=== PATIENT | male | born 1975 | race Caucasian/White ===

== ENCOUNTER 2016-08-19 08:48 | Observation (INO) | payer BC ==
[2016-08-19] MEDS ORDERED: PANTOPRAZOLE SODIUM 40 MG VIAL IV ONE (10:26)
[2016-08-19] MEDS ORDERED: NORMAL SALINE 1000 ML 1,000 ML IV PRN ×2 (10:26→14:08)
--- NOTE | 2016-08-19 10:29 | ER Document Report ---
ED General - General Chief Complaint: Abdominal Pain Stated Complaint: ABDOMINAL PAIN Time seen by provider: 10:27 Mode of Arrival: Ambulatory Information source: Patient Notes: This is a 41-year-old male that presents to the emergency room with epigastric pain on and off for the past month, which has become progressively worse over the past several days. Patient does state that he had black stools yesterday. He was in the shower this morning and started vomiting gross blood. Patient last ate yesterday. Currently, he complains of the abdominal pain. He denies fever, chills. TRAVEL OUTSIDE OF THE [place] IN LAST 30 DAYS: No - HPI Onset: Just prior to arrival Onset/Duration: Gradual Quality of pain: No pain Associated symptoms: None. denies: Chills, Fever Exacerbated by: Denies Relieved by: Denies Similar symptoms previously: No Recently seen / treated by doctor: No - Related Data Allergies/Adverse Reactions: No Known Allergies Allergy (Unverified 08/19/16 08:59) Home Medications: Current Home Medications No Home Medications 08/19/16 [History] Past Medical History - General Information source: Patient - Social History Smoking Status: Current Every Day Smoker Cigarette use (# per day): Yes - half pack per day Chew tobacco use (# tins/day): No Frequency of alcohol use: Occasional Drug Abuse: None Lives with: Family Family History: Reviewed & Not Pertinent Patient has suicidal ideation: No Patient has homicidal ideation: No - Medical History Medical History: Negative Renal/ Medical History: Denies: Hx Peritoneal Dialysis Surgical Hx: Negative - Immunizations Hx Diphtheria, Pertussis, Tetanus Vaccination: Yes Review of Systems - Review of Systems Notes: Review of systems: Constitutional: Denies fever, chills. EENT: Denies ear pain, sinus tenderness, throat pain, throat swelling. Cardiovascular: Denies chest pain, palpitations, dyspnea or edema. Respiratory: Denies wheezing, cough, hemoptysis. Abdomen: See H&P Genitourinary: Denies dysuria, pyuria, hematuria, flank pain. Musculoskeletal: denies joint pain or swelling, denies back pain. Neurologic: Denies headache, photophobia, neck stiffness, weakness. Denies loss of bowel or bladder function. Denies saddle anesthesia. Skin: Denies rash, lesions. Physical Exam - Vital signs Vitals: Temp Pulse Resp BP Pulse Ox 98.2 F 94 14 143/112 H 99 08/19/16 08:55 08/19/16 08:55 08/19/16 08:55 08/19/16 08:55 08/19/16 08:55 Notes: Physical exam: GENERAL: 41-year-old man, alert and oriented 3, mild distress. HEAD: Atraumatic, normocephalic. EYES: Pupils equal round and reactive to light, extraocular movements intact, sclera anicteric, conjunctiva are normal. ENT: TMs normal, nares patent, oropharynx clear without exudates. Moist mucous membranes. NECK: Normal range of motion, supple without lymphadenopathy or JVD. LUNGS: Breath sounds clear to auscultation bilaterally and equal. No wheezes rales or rhonchi. HEART: Regular rate and rhythm without murmurs, rubs or gallops. ABDOMEN: Soft, hypoactive bowel sounds, positive epigastric tenderness, no rebound. Mild guarding. No masses appreciated. Rectal: Brown stool, sent for study EXTREMITIES: Normal range of motion, no pitting or edema. No clubbing or cyanosis. NEUROLOGICAL: Cranial nerves II through XII grossly intact. Normal speech, normal gait. PSYCH: Normal mood, normal affect. SKIN: Warm, Dry, normal turgor, no rashes or lesions noted. Course - Re-evaluation Re-evalutation: 08/19/16 14:[address] Cobb who will see patient in consult for GI - Vital Signs Vital signs: Temp Pulse Resp BP Pulse Ox 97.9 F 68 16 139/103 H 100 08/19/16 16:21 08/19/16 16:21 08/19/16 16:21 08/19/16 16:21 08/19/16 16:21 - Laboratory Result Diagrams: 08/19/16 10:30 08/19/16 10:30 Laboratory results interpreted by me: 08/19/16 08/19/16 10:30 10:30 WBC 13.4 H Lymphocytes % 12.0 L Eosinophils % 8.3 H Absolute Neutrophils 9.6 H Absolute Eosinophils 1.1 H Chloride 108 H Calcium 10.3 H AST 16 L Discharge - Discharge Clinical Impression: GI bleed Condition: Stable Disposition: ADMITTED INPATIENT Admitting Provider: Hospitalist - Dr. erwin Unit Admitted: Telemetry
[2016-08-19 10:45] LABS: ABSOLUTE BASOPHILS # (AUTO) 0.1 10^3/uL (0.0-0.2); ABSOLUTE EOSINOPHILS # (AUTO) 1.1 10^3/uL (0.0-0.6); ABSOLUTE LYMPHOCYTES (AUTO) 1.6 10^3/uL (0.5-4.7); ABSOLUTE MONOCYTES (AUTO) 0.9 10^3/uL (0.1-1.4); ABSOLUTE NEUT (AUTO) 9.6 10^3/uL (1.7-8.2); BASOPHILS % (AUTO) 0.8 % (0-2); EOSINOPHILS % (AUTO) 8.3 % (0-6); HEMOGLOBIN 14.7 g/dL (13.5-17.0); HGB HCT DIFFERENCE 0.1; MEAN CORPUSCULAR HEMOGLOBIN 30.2 pg (27.0-33.4); MEAN CORPUSCULAR HGB CONC 33.4 g/dL (32.0-36.0); MEAN CORPUSCULAR VOLUME 90 fl (80-97); MONOCYTES % (AUTO) 6.7 % (3-13); RED BLOOD COUNT 4.87 10^6/uL (4.35-5.55); RED CELL DISTRIBUTION WIDTH 13.9 % (11.5-14.0); SEGMENTED NEUTROPHILS % (AUTO) 72.2 % (42-78); WHITE BLOOD COUNT 13.4 10^3/uL (4.0-10.5)
[2016-08-19 10:52] LABS: PROTHROMBIN TIME 11.7 SEC (11.4-15.4)
[2016-08-19 11:02] LABS: BLOOD UREA NITROGEN 11 mg/dL (7-20); CALCIUM 10.3 mg/dL (8.4-10.2); CARBON DIOXIDE 23 mmol/L (22-30); CHLORIDE 108 mmol/L (98-107); CREATININE RESULT 0.78 mg/dL (0.52-1.25); GLUCOSE 93 mg/dL (75-110); POTASSIUM 4.8 mmol/L (3.6-5.0)
[2016-08-19 11:03] LABS: ALANINE AMINOTRANSFERASE 28 U/L (21-72); ALBUMIN 4.3 g/dL (3.5-5.0); ALKALINE PHOSPHATASE 48 U/L (38-126); ANION GAP 12 (5-19); ASPARTATE AMINO TRANSFERASE 16 U/L (17-59); BILIRUBIN,DIRECT 0.1 mg/dL (0.0-0.4); BILIRUBIN,TOTAL 0.5 mg/dL (0.2-1.3); LIPASE 78.5 U/L (23-300); TOTAL PROTEIN 6.8 g/dL (6.3-8.2)
[2016-08-19] MEDS ORDERED: ACETAMINOPHEN 325 MG TABLET PO PRN (14:08)
[2016-08-19] MEDS ORDERED: ONDANSETRON HCL INJ/PF 4 MG/2 ML SDV IV PRN (14:08)
[2016-08-19] MEDS ORDERED: HYDROMORPHONE HCL INJ/PF 2 MG/ML AMPULE IV PRN (14:14)
--- NOTE | 2016-08-19 14:26 | PDOC H&P ---
History of Present Illness Admission Date/PCP: 08/19/2016 Patient complains of: Vomiting up blood History of Present Illness: SATNAM YAN is a 41 year old male with no significant past medical history he 's been taking 2-3 PVCs daily for left knee pain. The patient reports that he had a melanotic bowel stool on Friday and vomited up blood yesterday and today. The patient denies any loss of conscious. Denies shortness of breath or chest pain. Denies any palpitations. The patient has had some complaints of some moderate epigastric pain. He had a abdominal CT which was negative for any type of perforation. Patient is admitted for an acute GI bleed presumed to be gastric ulcer from nonsteroidals and we will have the patient evaluated by GI for endoscopy. Past Medical History Medical History: None Past Surgical History Past Surgical History: Reports: None Social History Information Source: Patient Lives with: Alone Smoking Status: Current Every Day Smoker Frequency of Alcohol Use: Rare Hx Recreational Drug Use: No Drugs: None Hx Prescription Drug Abuse: No - Advance Directive Resuscitation Status: Full Code Family History Family History: Mother 60 alive and healthy. Father at age 72 from lung cancer. Parental Family History Reviewed: Yes Children Family History Reviewed: No Sibling(s) Family History Reviewed.: No Medication/Allergy Allergies/Adverse Reactions: No Known Allergies Allergy (Unverified 08/19/16 08:59) Review of Systems Constitutional: ABSENT: chills, fever(s), headache(s), weight gain, weight loss Eyes: ABSENT: visual disturbances Ears: ABSENT: hearing changes Cardiovascular: ABSENT: chest pain, dyspnea on exertion, edema, orthropnea, palpitations Respiratory: ABSENT: cough, hemoptysis Gastrointestinal: PRESENT: abdominal pain - Epigastric area, bloating, dysphagia , hematemesis, melena, nausea, vomiting. ABSENT: coffee ground emesis, constipation, diarrhea, heartburn Genitourinary: ABSENT: dysuria, hematuria Musculoskeletal: PRESENT: other Integumentary: ABSENT: rash, wounds Neurological: ABSENT: abnormal gait, abnormal speech, confusion, dizziness, focal weakness, syncope Psychiatric: ABSENT: anxiety, depression Endocrine: ABSENT: cold intolerance, heat intolerance, polydipsia, polyuria Hematologic/Lymphatic: ABSENT: easy bleeding, easy bruising Physical Exam Vital Signs: Temp Pulse Resp BP Pulse Ox 98.2 F 94 14 143/112 H 99 08/19/16 08:55 08/19/16 08:55 08/19/16 08:55 08/19/16 08:55 08/19/16 08:55 Intake & Output 08/18/16 08/19/16 08/20/16 06:59 06:59 06:59 Weight 75.9 kg General appearance: PRESENT: no acute distress, well-developed, well-nourished Head exam: PRESENT: atraumatic, normocephalic Eye exam: PRESENT: conjunctiva pink, EOMI, PERRLA. ABSENT: scleral icterus Ear exam: PRESENT: normal external ear exam Mouth exam: PRESENT: moist, tongue midline Neck exam: ABSENT: carotid bruit, JVD, lymphadenopathy, thyromegaly Respiratory exam: PRESENT: clear to auscultation edd. ABSENT: rales, rhonchi, wheezes Cardiovascular exam: PRESENT: RRR. ABSENT: diastolic murmur, rubs, systolic murmur Pulses: PRESENT: normal dorsalis pedis pul Vascular exam: PRESENT: normal capillary refill GI/Abdominal exam: PRESENT: normal bowel sounds, soft, tenderness - Mild epigastric tenderness. ABSENT: distended, guarding, mass, organolmegaly, rebound Rectal exam: PRESENT: other - Rectal exam per ER doctor showed brown stool Extremities exam: PRESENT: full ROM. ABSENT: calf tenderness, clubbing, pedal edema Neurological exam: PRESENT: alert, awake, oriented to person, oriented to place , oriented to time, oriented to situation, CN II-XII grossly intact. ABSENT: motor sensory deficit Psychiatric exam: PRESENT: appropriate affect, normal mood Skin exam: PRESENT: dry, intact, warm. ABSENT: cyanosis, rash Results Laboratory Results: 08/19/16 10:30 08/19/16 10:30 08/19/16 08/19/16 08/19/16 10:15 10:30 10:30 WBC 13.4 H RBC 4.87 Hgb 14.7 Hct 44.0 MCV 90 MCH 30.2 MCHC 33.4 RDW 13.9 Plt Count 335 Seg Neutrophils % 72.2 Lymphocytes % 12.0 L Monocytes % 6.7 Eosinophils % 8.3 H Basophils % 0.8 Absolute Neutrophils 9.6 H Absolute Lymphocytes 1.6 Absolute Monocytes 0.9 Absolute Eosinophils 1.1 H Absolute Basophils 0.1 Sodium 143.0 Potassium 4.8 Chloride 108 H Carbon Dioxide 23 Anion Gap 12 BUN 11 Creatinine 0.78 Est GFR ( Amer) > 60 Est GFR (Non-Af Amer) > 60 Glucose 93 Calcium 10.3 H Total Bilirubin 0.5 AST 16 L ALT 28 Alkaline Phosphatase 48 Total Protein 6.8 Albumin 4.3 Lipase 78.5 Stool Occult Blood NEGATIVE Impressions: Chest X-Ray 08/19/16 10:26 IMPRESSION: NO ACUTE RADIOGRAPHIC FINDING IN THE CHEST. Abdomen/Pelvis CT 08/19/16 11:50 IMPRESSION: Very small density contiguous with the dependent portion of the gallbladder. Probably normal variant however small stone cannot be totally excluded. Ultrasound if further evaluation indicated based on clinical findings. Study is otherwise normal. Assessment & Plan - Diagnosis (1) GI bleed due to NSAIDs Is this a current diagnosis for this admission?: YesPlan: The patient has been taking 2-3 BC powders daily. We will give IV Protonix and ask GI to evaluate for upper endoscopy. Patient will be monitored with serial hemoglobins and transfuse as needed. We will start IV fluids and he has been instructed to avoid nonsteroidals in the future. He's been taking the nonsteroidals because of left knee pain. - Time Time Spent: 50 to 70 Minutes - Inpatient Certification Medical Necessity: Need Close Monitoring Due to Risk of Patient Decompensation - Plan Summary Plan Summary: Will ask GI to evaluate for an EGD for his acute upper GI bleed.
[2016-08-19] MEDS: NICOTINE 14 MG/24 HR PATCH.TD24 TD SCH (18:45)
[2016-08-19 21:18] LABS: ABSOLUTE BASOPHILS # (AUTO) 0.1 10^3/uL (0.0-0.2); ABSOLUTE EOSINOPHILS # (AUTO) 1.3 10^3/uL (0.0-0.6); ABSOLUTE LYMPHOCYTES (AUTO) 2.1 10^3/uL (0.5-4.7); ABSOLUTE NEUT (AUTO) 7.6 10^3/uL (1.7-8.2); BASOPHILS % (AUTO) 0.8 % (0-2); EOSINOPHILS % (AUTO) 10.5 % (0-6); HEMOGLOBIN 13.3 g/dL (13.5-17.0); HGB HCT DIFFERENCE -1.1; LYMPHOCYTES % (AUTO) 17.6 % (13-45); MEAN CORPUSCULAR HEMOGLOBIN 29.6 pg (27.0-33.4); MEAN CORPUSCULAR HGB CONC 32.5 g/dL (32.0-36.0); MEAN CORPUSCULAR VOLUME 91 fl (80-97); MONOCYTES % (AUTO) 8.6 % (3-13); RED CELL DISTRIBUTION WIDTH 13.9 % (11.5-14.0); SEGMENTED NEUTROPHILS % (AUTO) 62.5 % (42-78); WHITE BLOOD COUNT 12.2 10^3/uL (4.0-10.5)
[2016-08-19 21:21] LABS: APPEARANCE,URINE CLEAR; BILIRUBIN,URINE NEGATIVE (NEGATIVE); GLUCOSE, URINE NEGATIVE (NEGATIVE); KETONES,URINE NEGATIVE (NEGATIVE); LEUKOCYTE ESTERASE,URINE NEGATIVE (NEGATIVE); NITRITE,URINE NEGATIVE (NEGATIVE); PROTEIN,URINE NEGATIVE (NEGATIVE); URINE SPECIFIC GRAVITY 1.017; UROBILINOGEN,URINE NEGATIVE mg/dL (<2.0)
[2016-08-19] MEDS: PANTOPRAZOLE SODIUM 40 MG VIAL IV SCH (22:32)
[2016-08-20 04:40] LABS: HEMATOCRIT 38.4 % (37.9-51.0); HGB HCT DIFFERENCE 0.6; MEAN CORPUSCULAR HEMOGLOBIN 30.8 pg (27.0-33.4); MEAN CORPUSCULAR HGB CONC 33.9 g/dL (32.0-36.0); MEAN CORPUSCULAR VOLUME 91 fl (80-97); RED BLOOD COUNT 4.22 10^6/uL (4.35-5.55); WHITE BLOOD COUNT 10.5 10^3/uL (4.0-10.5)
[2016-08-20 04:51] LABS: ANION GAP 10 (5-19); BLOOD UREA NITROGEN 12 mg/dL (7-20); CALCIUM 9.2 mg/dL (8.4-10.2); CARBON DIOXIDE 22 mmol/L (22-30); CHLORIDE 111 mmol/L (98-107); CREATININE RESULT 0.85 mg/dL (0.52-1.25); GLUCOSE 73 mg/dL (75-110); POTASSIUM 4.3 mmol/L (3.6-5.0); SODIUM 142.8 mmol/L (137-145)
--- NOTE | 2016-08-20 08:54 | PDOC PROGRESS REPORT ---
Subjective Progress Note for:: 08/20/16 Subjective:: Feels a lot better. Abdominal pain resolved. No diarrhea. No nausea or vomiting. No hematemesis, no chills or fever. No shortness of breath or chest pain. No prior history of ulcers. Patient works a lot in terms of lifting pushing and pulling heavy materials. 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 He takes [id number] nonsteroidal for pain. Physical Exam Vital Signs: Temp Pulse Resp BP Pulse Ox 97.7 F 80 16 117/75 98 08/20/16 07:56 08/20/16 07:56 08/20/16 07:56 08/20/16 07:56 08/20/16 07:56 Intake & Output 08/19/16 08/20/16 08/21/16 06:59 06:59 06:59 Intake Total 2384 Output Total 0 Balance 2384 Weight 73.2 kg General appearance: PRESENT: no acute distress, cooperative Head exam: PRESENT: normocephalic Eye exam: PRESENT: EOMI Mouth exam: PRESENT: moist, neck supple Neck exam: ABSENT: JVD Respiratory exam: PRESENT: clear to auscultation edd. ABSENT: rhonchi, wheezes Cardiovascular exam: PRESENT: RRR GI/Abdominal exam: PRESENT: normal bowel sounds, soft. ABSENT: distended, tenderness Extremities exam: ABSENT: pedal edema Neurological exam: PRESENT: alert, awake, oriented to person, oriented to place , oriented to time, oriented to situation Skin exam: PRESENT: dry, warm. ABSENT: cyanosis Results Laboratory Results: 08/20/16 04:25 08/20/16 04:25 08/19/16 08/19/16 08/20/16 20:00 20:44 04:25 WBC 12.2 H 10.5 RBC 4.50 4.22 L Hgb 13.3 L 13.0 L Hct 41.0 38.4 MCV 91 91 MCH 29.6 30.8 MCHC 32.5 33.9 RDW 13.9 14.0 Plt Count 297 266 Seg Neutrophils % 62.5 Lymphocytes % 17.6 Monocytes % 8.6 Eosinophils % 10.5 H Basophils % 0.8 Absolute Neutrophils 7.6 Absolute Lymphocytes 2.1 Absolute Monocytes 1.0 Absolute Eosinophils 1.3 H Absolute Basophils 0.1 Sodium Potassium Chloride Carbon Dioxide Anion Gap BUN Creatinine Est GFR ( Amer) Est GFR (Non-Af Amer) Glucose Calcium Urine Color STRAW Urine Appearance CLEAR Urine pH 5.0 Ur Specific [place] 1.017 Urine Protein NEGATIVE Urine Glucose (UA) NEGATIVE Urine Ketones NEGATIVE Urine Blood NEGATIVE Urine Nitrite NEGATIVE Ur Leukocyte Esterase NEGATIVE Urine WBC (Auto) 1 Urine RBC (Auto) 1 08/20/16 04:25 WBC RBC Hgb Hct MCV MCH MCHC RDW Plt Count Seg Neutrophils % Lymphocytes % Monocytes % Eosinophils % Basophils % Absolute Neutrophils Absolute Lymphocytes Absolute Monocytes Absolute Eosinophils Absolute Basophils Sodium 142.8 Potassium 4.3 Chloride 111 H Carbon Dioxide 22 Anion Gap 10 BUN 12 Creatinine 0.85 Est GFR ( Amer) > 60 Est GFR (Non-Af Amer) > 60 Glucose 73 L Calcium 9.2 Urine Color Urine Appearance Urine pH Ur Specific [place] Urine Protein Urine Glucose (UA) Urine Ketones Urine Blood Urine Nitrite Ur Leukocyte Esterase Urine WBC (Auto) Urine RBC (Auto) Impressions: Chest X-Ray 08/19/16 10:26 IMPRESSION: NO ACUTE RADIOGRAPHIC FINDING IN THE CHEST. Abdomen/Pelvis CT 08/19/16 11:50 IMPRESSION: Very small density contiguous with the dependent portion of the gallbladder. Probably normal variant however small stone cannot be totally excluded. Ultrasound if further evaluation indicated based on clinical findings. Study is otherwise normal. Assessment & Plan - Diagnosis (1) GI bleed due to NSAIDs Is this a current diagnosis for this admission?: Yes (2) Abdominal pain Qualifiers: Abdominal location: upper abdomen, unspecified Qualified Code(s): R10.10 - Upper abdominal pain, unspecified Is this a current diagnosis for this admission?: Yes (3) Hypercalcemia Is this a current diagnosis for this admission?: Yes - Time Time Spent with patient: 25-34 minutes - Plan Summary Plan Summary: Patient clinically improved. Calcium level has normalized. We will continue hydration. Continue intravenous proton pump inhibitor. Recheck hematocrit in the morning. Patient is counseled and educated about [id number] medications and he understood. He is requesting pain medications to take while he is at work, he was advised to take as needed NSAIDs with proton pump inhibitor, or when necessary Ultram. He was advised to stay away from medications that can sedate due to his line of work.
[2016-08-20] MEDS: PANTOPRAZOLE SODIUM 40 MG VIAL IV SCH (09:19)
[2016-08-20] MEDS ORDERED: PROMETHAZINE HCL INJ 25 MG/1 ML VIAL ONE (14:52)
[2016-08-20] MEDS ORDERED: NALOXONE HCL INJ/PF 0.4 MG/1 ML SDV ONE (14:52)
[2016-08-20] MEDS ORDERED: FENTANYL CITRATE INJ/PF 100 MCG/2 ML AMPUL ONE (14:53)
[2016-08-20] MEDS ORDERED: EPINEPHRINE INJ 1 MG/10 ML DISP.SYRIN ONE (14:53)
[2016-08-20] MEDS ORDERED: FLUMAZENIL INJ 0.5 MG/5 ML VIAL IV ONE (14:53)
[2016-08-20] MEDS ORDERED: GLUCAGON,HUMAN RECOMB 1 MG INJ ONE (14:54)
[2016-08-20] MEDS: NICOTINE 14 MG/24 HR PATCH.TD24 TD SCH (17:38)
[2016-08-20] MEDS: MIDAZOLAM 2 MG/2 ML INJ ONE ×2 (18:40→18:44)
--- NOTE | 2016-08-20 18:42 | PDOC CONSULTATION ---
Consultation Consult Date: 08/19/16 History of Present Illness Admission Date/PCP: 08/19/16 14:09 History of Present Illness: This is a 41-year-old patient admitted to the emergency room with hematemesis. He had one episode of vomiting blood prior to being admitted. He also had a black stool a couple of days ago. He has been having recurrent epigastric pain for the last three months. He takes aspirin 3-4 times a day and has been doing this for the last one year. On admission his hemoglobin was 14.7 and 10 hours later it was still 13. He had a CT of the abdomen that was unremarkable except for very small density contiguous with the wall of the gallbladder that could be a normal variant but could also be small gallstone Past Medical History Psychiatric Medical History: Denies: Depression Past Surgical History Past Surgical History: Reports: None Social History Lives with: Family Smoking Status: Current Every Day Smoker Cigarettes Packs Per Day: 0.5 Number of Years Smokin Last Time Smoked: 0700 Frequency of Alcohol Use: Occasional Hx Recreational Drug Use: No Drugs: None Hx Prescription Drug Abuse: No - Advance Directive Resuscitation Status: Full Code Family History Family History: Reviewed & Not Pertinent Parental Family History Reviewed: No Children Family History Reviewed: NA Sibling(s) Family History Reviewed.: NA Medication/Allergy Home Medications: No Home Medications 08/19/16 Allergies/Adverse Reactions: No Known Allergies Allergy (Unverified 08/19/16 08:59) Review of Systems All systems: reviewed and no additional remarkable complaints except as stated Physical Exam Vital Signs: Temp Pulse Resp BP Pulse Ox 98.0 F 76 16 121/99 H 100 08/20/16 18:10 08/20/16 18:35 08/20/16 18:35 08/20/16 18:35 08/20/16 18:35 Intake & Output 08/19/16 08/20/16 08/21/16 06:59 06:59 06:59 Intake Total 2384 3524 Output Total 0 Balance 2384 3524 Weight 73.2 kg Exam: General: Patient is alert and looks well. HEENT: There is no pallor or jaundice. PERRLA. Oropharynx normal Respiratory: No chest deformity. No respiratory distress. Chest wall palpitation was unremarkable. Breath sounds were normal Cardiovascular: Heart sounds 1 and 2 normal with no murmurs. Abdominal: Not distended. Soft and nontender. Liver and spleen not palpable. No ascites demonstrated. Bowel sounds active. Rectal examination was deferred. Extremities: No edema Neurological: Alert and oriented x4. Grossly nonfocal. Normal speech Skin: No significant rash Psychological: Normal affect Results Laboratory Results: 08/20/16 04:25 08/20/16 04:25 08/19/16 08/19/16 08/20/16 20:00 20:44 04:25 WBC 12.2 H 10.5 RBC 4.50 4.22 L Hgb 13.3 L 13.0 L Hct 41.0 38.4 MCV 91 91 MCH 29.6 30.8 MCHC 32.5 33.9 RDW 13.9 14.0 Plt Count 297 266 Seg Neutrophils % 62.5 Lymphocytes % 17.6 Monocytes % 8.6 Eosinophils % 10.5 H Basophils % 0.8 Absolute Neutrophils 7.6 Absolute Lymphocytes 2.1 Absolute Monocytes 1.0 Absolute Eosinophils 1.3 H Absolute Basophils 0.1 Sodium Potassium Chloride Carbon Dioxide Anion Gap BUN Creatinine Est GFR ( Amer) Est GFR (Non-Af Amer) Glucose Calcium Urine Color STRAW Urine Appearance CLEAR Urine pH 5.0 Ur Specific [place] 1.017 Urine Protein NEGATIVE Urine Glucose (UA) NEGATIVE Urine Ketones NEGATIVE Urine Blood NEGATIVE Urine Nitrite NEGATIVE Ur Leukocyte Esterase NEGATIVE Urine WBC (Auto) 1 Urine RBC (Auto) 1 08/20/16 04:25 WBC RBC Hgb Hct MCV MCH MCHC RDW Plt Count Seg Neutrophils % Lymphocytes % Monocytes % Eosinophils % Basophils % Absolute Neutrophils Absolute Lymphocytes Absolute Monocytes Absolute Eosinophils Absolute Basophils Sodium 142.8 Potassium 4.3 Chloride 111 H Carbon Dioxide 22 Anion Gap 10 BUN 12 Creatinine 0.85 Est GFR ( Amer) > 60 Est GFR (Non-Af Amer) > 60 Glucose 73 L Calcium 9.2 Urine Color Urine Appearance Urine pH Ur Specific [place] Urine Protein Urine Glucose (UA) Urine Ketones Urine Blood Urine Nitrite Ur Leukocyte Esterase Urine WBC (Auto) Urine RBC (Auto) Impressions: Chest X-Ray 08/19/16 10:26 IMPRESSION: NO ACUTE RADIOGRAPHIC FINDING IN THE CHEST. Abdomen/Pelvis CT 08/19/16 11:50 IMPRESSION: Very small density contiguous with the dependent portion of the gallbladder. Probably normal variant however small stone cannot be totally excluded. Ultrasound if further evaluation indicated based on clinical findings. Study is otherwise normal. Assessment & Plan - Diagnosis (1) Hematemesis Is this a current diagnosis for this admission?: YesPlan: He had one episode of hematemesis with a stable hemoglobin. He will undergo an EGD to rule out ulcers. He has been abusing NSAIDs for about a year (2) High risk medication use Is this a current diagnosis for this admission?: Yes (3) Abdominal pain Qualifiers: Abdominal location: upper abdomen, unspecified Qualified Code(s): R10.10 - Upper abdominal pain, unspecified Is this a current diagnosis for this admission?: Yes
--- NOTE | 2016-08-20 18:55 | Operative Report ---
Operative Report DATE OF SURGERY: 08/20/16 Operative Report: Pre-op diagnosis: GI bleed and epigastric pain Post-op diagnosis: 1. Large duodenal ulcer 2. Grade C esophagitis 3. Esophageal stricture Surgery: Esophagogastroduodenoscopy with biopsy Medications: Versed 4mg Fentanyl 100 mcg IV push Tissue removed: Antral biopsy for pathology Procedure: After informed consent obtained from patient, the throat was sprayed with Hurricane and conscious sedation was achieved. The upper endoscope was inserted into the esophagus under direct vision and advanced into the stomach. The duodenum was entered and examined to the second part. Endoscope was then slowly pulled out of the patient as the mucosa was examined into details. Patient tolerated procedure well. Findings Esophagus: Near circumferential erosions involving the last 1 cm of the esophagus and the Z line. There was some stenoses. Antrum: Normal Body: Normal Fundus: Normal Duodenum first part: Large 1.5-2 cm ulcer noted in the proximal part of the duodenal bulb just inside of the pyloric channel. The base of the ulcer was yellowish and there was no evidence for recent bleeding. Duodenum second part: Normal Plan: Await pathology. Continue Prevacid or any other PPI twice a day and repeat EGD in 6-8 weeks. Patient should avoid NSAIDs OPERATION: .
[2016-08-21 04:48] LABS: HEMATOCRIT 38.3 % (37.9-51.0); HEMOGLOBIN 12.6 g/dL (13.5-17.0); HGB HCT DIFFERENCE -0.5; MEAN CORPUSCULAR VOLUME 91 fl (80-97); RED BLOOD COUNT 4.21 10^6/uL (4.35-5.55); RED CELL DISTRIBUTION WIDTH 13.6 % (11.5-14.0); WHITE BLOOD COUNT 10.4 10^3/uL (4.0-10.5)
--- NOTE | 2016-08-21 10:16 | PDOC DISCHARGE SUMMARY ---
General - Admit/Disc Date/PCP Admission Date/Primary Care Provider: 08/19/16 14:09 Discharge Date: 08/21/16 - Discharge Diagnosis (1) GI bleed due to NSAIDs Is this a current diagnosis for this admission?: Yes (2) Hypercalcemia Is this a current diagnosis for this admission?: Yes (3) Duodenal ulcer Is this a current diagnosis for this admission?: Yes (4) Esophagitis determined by endoscopy Is this a current diagnosis for this admission?: Yes (5) Esophageal stricture Is this a current diagnosis for this admission?: Yes - Additional Information Resuscitation Status: Full Code Discharge Diet: Other (Comments) - soft mechanical Discharge Activity: Activity As Tolerated, Balance Activity w/Rest Home Medications: Lansoprazole [Prevacid] 30 mg PO BID #60 capsule. 08/21/16 Tramadol HCl [Ultram] 50 mg PO Q8H PRN #30 tablet 08/21/16 Additional Information: 1. 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 2. Stop smoking and alcohol 3. Avoid [id number] nonsteroidal anti-inflammatory medications History of Present Illness Patient complains of: Vomiting blood History of Present Illness: SATNAM YAN is a 41 year old male has been taking nonsteroidal anti- inflammatory medication [id number] for pain relief, presents to the hospital because of vomiting blood. Patient reports melena as well as epigastric pain. Patient has been taking Goody powders for pain as he has a lot of discomfort musculoskeletal bustillo brought about by his work. For details please refer to history and physical examination performed by the admitting physician. Hospital Course Hospital Course: The patient was admitted to telemetry. The patient was kept nothing by mouth and serial hemoglobin and hematocrit was monitored and noted to be stable. It did initially drop likely from hydration. The patient was started on proton pump inhibitor. Gastroenterology was consulted who eventually performed upper endoscopy and found a duodenal ulcer without any active, or recent bleeding. The patient's abdominal discomfort resolve, as well as the melena, and the vomiting. Patient was educated about peptic ulcer disease, diet, smoking, and alcohol intake. The patient understood. He was advised to follow up results of biopsy as outpatient with primary care physician, or gastroenterology. He was likewise advised to have a repeat endoscopy on an outpatient basis to monitor ulcer. Physical Exam Vital Signs: Temp Pulse Resp BP Pulse Ox 97.8 F 72 14 129/83 H 99 08/21/16 07:59 08/21/16 07:59 08/21/16 07:59 08/21/16 07:59 08/21/16 07:59 Intake & Output 08/20/16 08/21/16 08/22/16 06:59 06:59 06:59 Intake Total 2384 4669 Output Total 0 Balance 2384 4669 Weight 73.2 kg 74.3 kg General appearance: PRESENT: no acute distress, cooperative, well-developed Head exam: PRESENT: normocephalic Eye exam: PRESENT: EOMI, PERRLA. ABSENT: scleral icterus Mouth exam: PRESENT: moist, neck supple Neck exam: ABSENT: JVD Respiratory exam: PRESENT: clear to auscultation edd. ABSENT: rhonchi, wheezes Cardiovascular exam: PRESENT: RRR. ABSENT: gallop GI/Abdominal exam: PRESENT: normal bowel sounds, soft. ABSENT: distended, tenderness Extremities exam: ABSENT: pedal edema Neurological exam: PRESENT: alert, awake, oriented to person, oriented to place , oriented to time, oriented to situation Skin exam: PRESENT: dry, warm. ABSENT: cyanosis Results Laboratory Results: 08/21/16 04:04 08/20/16 04:25 08/21/16 04:04 WBC 10.4 RBC 4.21 L Hgb 12.6 L Hct 38.3 MCV 91 MCH 30.0 MCHC 33.0 RDW 13.6 Plt Count 284 Impressions: Chest X-Ray 08/19/16 10:26 IMPRESSION: NO ACUTE RADIOGRAPHIC FINDING IN THE CHEST. Abdomen/Pelvis CT 08/19/16 11:50 IMPRESSION: Very small density contiguous with the dependent portion of the gallbladder. Probably normal variant however small stone cannot be totally excluded. Ultrasound if further evaluation indicated based on clinical findings. Study is otherwise normal. Qualifiers PATEINT BEING DISCHARGED WITH ANY OF THE FOLLOWING DIAGNOSIS?: No Plan Discharge Plan: 1. Follow-up with primary care physician in one week 2. Follow-up with Dr. Cobb in 1-2 weeks. Time Spent: Less than 30 Minutes
[2016-08-21] MEDS ORDERED: LANSOPRAZOLE 30 MG TAB.RAP.DR PO ONE (11:00)
[2016-08-21] MEDS ORDERED: INFLUENZA ADLT QUAD (36MOS+) 2016-17 VAC 0.5 ML SYR IM PRN (12:06)
[2016-08-21 13:03] VITALS: BP 139/103
[2016-08-21] MEDS ORDERED: LANSOPRAZOLE 30 MG TAB.RAP.DR PO SCH (17:00)
== END 2016-08-21 14:10 | disposition home or self-care (01) ==
LOC: ER 08:48 → EH 14:09 → INTOOBSV 14:09 → 5 16:03
PROVIDERS: ADMIT Internal Medicine; ATTEND Internal Medicine
DX: K92.2 Gastrointestinal hemorrhage, unspecified (principal); T39.395A Adverse effect of other nonsteroidal anti-inflammatory drugs [NSAID], initial encounter; K20.9 Esophagitis, unspecified; K22.2 Esophageal obstruction; F17.210 Nicotine dependence, cigarettes, uncomplicated; E83.52 Hypercalcemia
CPT/HCPCS: 99285; 96361; 96374; 43239; 36415 ×3; 83690; 85025; 85027 ×2; 85610; 82272; 80048; 80053; 81001; 88342 ×2; 88305 ×2; 71010; 74177; G0378 ×4; J2250; J3010; J1170; S0164 ×2; J7030; J0171; J1610; J2310; J2550; J3490